=== PATIENT | male | born 1980 | race Caucasian/White ===

== ENCOUNTER 2016-07-14 06:02 | Emergency (ER) | payer BC ==
[~2016-07-14] VITALS: Ht 185.4 cm; Wt 74.8 kg
[2016-07-14] MEDS ORDERED: NKM (06:11)
[2016-07-14 06:30] VITALS: BP 112/80
--- NOTE | 2016-07-14 06:35 | Emergency Room Report ---
History of Present Illness General Chief Complaint: Laceration Source: Patient Present Illness HPI Patient presents with a cut on his left index finger. He was cutting vegetables last night and sliced it. Patient is up-to-date on his tetanus. He reports some blood loss and also some pain. 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 Pain is 3/10. He denies other medical problems. 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 Nursing Documentation: PMH: Agreed, PSxH: Agreed Nursing Documentation-PMH Past Medical History: No Stated History Review of Systems Constitutional: Denies: fever Musculoskeletal: Reports: see HPI Skin: Reports: see HPI Neurological: Denies: numbness Physical Exam Vital Signs Date Time Temp Pulse Resp B/P Pulse Ox O2 Delivery O2 Flow Rate FiO2 07/14/16 06:08 97.5 91 16 112/80 99 Room Air General Appearance: well appearing, no apparent distress Head: normocephalic, atraumatic ENT: hearing grossly normal, normal voice, moist mucus membranes Neck: full range of motion, supple Respiratory: no respiratory distress, speaking full sentences Musculoskeletal: gait/station normal, normal range of motion Neurologic: alert, normal gait, grossly normal Psychiatric: mood/affect normal Skin: no rash, laceration - L index finger = avulsion radial side 1/2 X 1 cm Medical Decision Making Diagnostic Impression: Primary Impression: L index finger avulsion ER Course Patient presents with a left index finger avulsion. Only cleans and dressed with Xeroform. This is a nonsuturable injury. The patient is stable for outpatient observation and treatment. When care was discussed with the patient. Last Vital Signs Date Time Temp Pulse Resp B/P Pulse Ox O2 Delivery O2 Flow Rate FiO2 07/14/16 06:30 97.5 16 112/80 99 Room Air 07/14/16 06:08 91 Status: improved Disposition: HOME, SELF-CARE Condition: Improved Michael Sheridan M.D. Jul 14, 2016 06:35
== END 2016-07-14 06:38 | disposition home or self-care (01) ==
LOC: EMR 06:30
DX: S61.201A Unspecified open wound of left index finger without damage to nail, initial encounter (principal); X58.XXXA Exposure to other specified factors, initial encounter; Y92.9 Unspecified place or not applicable; Y99.8 Other external cause status
CPT/HCPCS: 99283